=== PATIENT | male | born 1950 | race Caucasian/White ===

== ENCOUNTER 2021-06-25 09:55 | Inpatient (IN) | payer BC, MEDICARE ==
[~2021-06-25] VITALS: Ht 175.3 cm; Wt 70.0 kg
[2021-06-25 11:18] LABS: EOSINOPHILS # (AUTO) 0.3 X10'3 (0-0.9); EOSINOPHILS % (AUTO) 6.7 % (0-6); HEMATOCRIT 44.7 % (42.0-52.0); HEMOGLOBIN 15.7 g/dl (14.0-17.9); LYMPHOCYTES # (AUTO) 1.4 X10'3 (1.1-4.8); LYMPHOCYTES % (AUTO) 30.2 % (21-51); MEAN CORPUSCULAR HEMOGLOBIN 30.4 PG (27.0-31.0); MEAN CORPUSCULAR HGB CONC 35.1 g/dL (33.0-36.5); MEAN CORPUSCULAR VOLUME 86.5 FL (78-98); MONOCYTES # (AUTO) 0.4 X10'3 (0-0.9); MONOCYTES % (AUTO) 8.2 % (2-12); NEUTROPHILS # (AUTO) 2.4 X10'3 (1.8-7.7); NEUTROPHILS % (AUTO) 53.9 % (42-75); PLATELET COUNT 200 X10'3 (140-440); RED BLOOD COUNT 5.16 X10'6 (4.70-6.10); WHITE BLOOD COUNT 4.5 X10'3 (4.5-11.0)
[2021-06-25 11:29] LABS: PARTIAL THROMBOPLASTIN TIME 28 SECONDS (22-32)
[2021-06-25 11:33] LABS: ALANINE AMINOTRANSFERASE 33 U/L (12-78); ALBUMIN 4.1 G/DL (3.4-5.0); ALBUMIN/GLOBULIN RATIO 1.2 (1.1-1.5); ALKALINE PHOSPHATASE 88 IU/L (46-116); ANION GAP 7 (8-16); ASPARTATE AMINO TRANSFERASE 15 U/L (10-37); BILIRUBIN,TOTAL 0.6 MG/DL (0.1-1.0); BLOOD UREA NITROGEN 19 MG/DL (7-18); CALCIUM 9.2 MG/DL (8.5-10.1); CHLORIDE 105 MMOL/L (99-107); CREATININE 1.19 MG/DL (0.60-1.10); GLUCOSE 91 MG/DL (70-104); SODIUM 137 MMOL/L (135-145); TOTAL PROTEIN 7.5 G/DL (6.4-8.2); eGFR 60 ML/MIN
--- NOTE | 2021-06-25 11:51 | NUR ---
NEURO TELE IN PROGRESS
[2021-06-25] MEDS ORDERED: potassium Cl 20 mEq SR tablet PO PRN ×2 (12:50)
[2021-06-25] MEDS ORDERED: potassium CL 10mEq/100ml bag 100 ML IV PRN (12:50)
[2021-06-25] MEDS ORDERED: mag hydrox/Alum hydrox/simeth 30ml oral suspension PO PRN (12:50)
[2021-06-25] MEDS ORDERED: acetaminophen 325mg tablet PO PRN ×2 (12:50)
[2021-06-25] MEDS ORDERED: ondansetron/PF 4mg/2ml inj IV PRN (12:50)
[2021-06-25] MEDS ORDERED: magnesium Cl slow-release 64mg tablet PO PRN (12:50)
[2021-06-25] MEDS ORDERED: magnesium 2GM in 50ml NS 50 ML IV PRN (12:50)
[2021-06-25] MEDS ORDERED: magnesium 4gm in 100ml NS 100 ML IV PRN (12:50)
[2021-06-25] MEDS ORDERED: morphine 2 MG/ML inj. syringe IV PRN (12:50)
[2021-06-25] MEDS: normal saline 1000ml 1,000 ML IV SCH ×2 (12:50→20:24)
[2021-06-25] MEDS ORDERED: HYDROcodone/acetaminophen 5mg/325mg tablet PO PRN (12:50)
[2021-06-25] MEDS ORDERED: magnesium hydroxide 30ml (MOM) UD suspension PO PRN (12:50)
[2021-06-25 13:38] LABS: HEMOGLOBIN A1C 5.1 % (4.5-6.2)
[2021-06-25] MEDS: aspirin 81mg, enteric-coated 1 TAB TABLET.DR PO SCH (13:52)
--- NOTE | 2021-06-25 14:01 | NUR ---
Report given to STEFANO Whitt.
[2021-06-25 15:00] VITALS: BP 125/80
[2021-06-25] MEDS ORDERED: OMEP-50 PO (15:42)
[2021-06-25 18:00] VITALS: BP 124/81
--- NOTE | 2021-06-25 18:47 | NUR ---
Problems reprioritized. Patient report given, questions answered & plan of care reviewed with collins haas.
[2021-06-25] MEDS: K and/or MAG REPLACEMENT MC SCH (20:00)
[2021-06-25] MEDS: heparin, porcine 5000 units/ml vial SQ SCH (20:21)
[2021-06-25] MEDS ORDERED: temazepam 15mg capsule PO PRN (21:00)
[2021-06-25 22:00] VITALS: BP 96/55
[2021-06-26 06:45] LABS: BASOPHILS % (AUTO) 0.8 % (0-1); EOSINOPHILS # (AUTO) 0.3 X10'3 (0-0.9); EOSINOPHILS % (AUTO) 6.8 % (0-6); HEMATOCRIT 44.3 % (42.0-52.0); HEMOGLOBIN 15.7 g/dl (14.0-17.9); LYMPHOCYTES # (AUTO) 1.3 X10'3 (1.1-4.8); LYMPHOCYTES % (AUTO) 31.8 % (21-51); MEAN CORPUSCULAR HEMOGLOBIN 30.6 PG (27.0-31.0); MEAN CORPUSCULAR HGB CONC 35.5 g/dL (33.0-36.5); MEAN CORPUSCULAR VOLUME 86.1 FL (78-98); MEAN PLATELET VOLUME 8.1 FL (7.4-10.4); MONOCYTES # (AUTO) 0.4 X10'3 (0-0.9); MONOCYTES % (AUTO) 9.4 % (2-12); NEUTROPHILS # (AUTO) 2.1 X10'3 (1.8-7.7); NEUTROPHILS % (AUTO) 51.2 % (42-75); PLATELET COUNT 196 X10'3 (140-440); RED BLOOD COUNT 5.14 X10'6 (4.70-6.10); RED CELL DISTRIBUTION WIDTH 13.7 % (11.5-14.5); WHITE BLOOD COUNT 4.1 X10'3 (4.5-11.0)
[2021-06-26 06:52] LABS: ALBUMIN 3.5 G/DL (3.4-5.0); ANION GAP 9 (8-16); BLOOD UREA NITROGEN 21 MG/DL (7-18); BUN/CREATININE RATIO 21.6 (5.4-32.0); CALCIUM 8.6 MG/DL (8.5-10.1); CHLORIDE 109 MMOL/L (99-107); CHOL/HDL RATIO 5.3 (0.00-4.99); CHOLESTEROL 226 MG/DL (0-200); CREATININE 0.97 MG/DL (0.60-1.10); GLUCOSE 98 MG/DL (70-104); HDL CHOLESTEROL 43 MG/DL (35-60); LDL CHOLESTEROL 146 MG/DL (50-100); POTASSIUM 4.2 MMOL/L (3.5-5.1); SODIUM 141 MMOL/L (135-145); TOTAL CARBON DIOXIDE 22.7 MMOL/L (24-32); TRIGLYCERIDES 164 MG/DL (20-135); eGFR 76 ML/MIN
[2021-06-26 07:00] VITALS: BP 103/68
--- NOTE | 2021-06-26 07:00 | NUR ---
Patient in room PCU 3021. I have received report from Cassandra and had the opportunity to ask questions and assume patient care.
[2021-06-26] MEDS ORDERED: pantoprazole 40mg Tablet.DR PO SCH (07:30)
[2021-06-26] MEDS: aspirin 81mg, enteric-coated 1 TAB TABLET.DR PO SCH (07:51)
[2021-06-26] MEDS: heparin, porcine 5000 units/ml vial SQ SCH (07:52)
[2021-06-26] MEDS: K and/or MAG REPLACEMENT MC SCH ×2 (07:57→08:45)
[2021-06-26 08:00] VITALS: BP_SYST 100; BP_SYST 108; BP_SYST 113; BP_DIAS 75; BP_DIAS 76
[2021-06-26] MEDS ORDERED: atorvastatin 20mg tablet PO SCH (08:00)
[2021-06-26] MEDS: normal saline 1000ml 1,000 ML IV SCH (08:02)
[2021-06-26] MEDS ORDERED: ASPI-1071 PO (11:06)
[2021-06-26] MEDS ORDERED: ATOR20TA66 PO (11:06)
--- NOTE | 2021-06-26 15:13 | NUR ---
PAGER ID: [phone] MESSAGE: [email or web address] ON [email or web address], I HAVE MRI FROM [facility] FOR 3021 HERE IF YOU WANT TO VIEW, THANK YOU.
--- NOTE | 2021-06-26 17:30 | NUR ---
Patient d/c to go home with d/c and f/u instructions/directions given to him by resource nurse Erica. IV line and media monitor removed by resource nurse.
== END 2021-06-26 15:25 | disposition home or self-care (01) | DRG 69 ==
LOC: EEVIPCON 09:55 → ER 09:55 → ED HOLD 12:56 → PCU 3S 14:39
PROVIDERS: ADMIT Internal Medicine; ATTEND Internal Medicine
DX: G45.9 Transient cerebral ischemic attack, unspecified (principal); I25.10 Atherosclerotic heart disease of native coronary artery without angina pectoris; G93.0 Cerebral cysts; K21.9 Gastro-esophageal reflux disease without esophagitis; G43.909 Migraine, unspecified, not intractable, without status migrainosus; E86.0 Dehydration; Z95.1 Presence of aortocoronary bypass graft; Z91.041 Radiographic dye allergy status
CPT/HCPCS: 36415; 70450; 70544; 70551; 71045; 80048; 80053; 80061; 82948; 83036; 84484; 85025; 85610; 85730; 93005; 93306; 93880; 99285; G0378; J1644; J7030

== ENCOUNTER 2022-01-05 09:53 | Day surgery (SDC) | payer BC, MEDICARE ==
[2022-01-02 10:10] LABS: BASOPHILS % (AUTO) 0.7 % (0-1); EOSINOPHILS # (AUTO) 0.3 X10'3 (0-0.9); EOSINOPHILS % (AUTO) 5.2 % (0-6); HEMATOCRIT 46.8 % (42.0-52.0); LYMPHOCYTES # (AUTO) 1.6 X10'3 (1.1-4.8); LYMPHOCYTES % (AUTO) 26.7 % (21-51); MEAN CORPUSCULAR HEMOGLOBIN 29.2 PG (27.0-31.0); MEAN CORPUSCULAR HGB CONC 34.3 g/dL (33.0-36.5); MEAN CORPUSCULAR VOLUME 85.4 FL (78-98); MEAN PLATELET VOLUME 8.1 FL (7.4-10.4); MONOCYTES # (AUTO) 0.4 X10'3 (0-0.9); MONOCYTES % (AUTO) 7.5 % (2-12); NEUTROPHILS # (AUTO) 3.5 X10'3 (1.8-7.7); NEUTROPHILS % (AUTO) 59.9 % (42-75); PLATELET COUNT 207 X10'3 (140-440); RED BLOOD COUNT 5.48 X10'6 (4.70-6.10); RED CELL DISTRIBUTION WIDTH 14.2 % (11.5-14.5); WHITE BLOOD COUNT 5.9 X10'3 (4.5-11.0)
[2022-01-02 10:20] LABS: APTT 28 SECONDS (22-32)
[2022-01-02 10:21] LABS: ALBUMIN 4.3 G/DL (3.4-5.0); ANION GAP 6 (8-16); BLOOD UREA NITROGEN 21 MG/DL (7-18); BUN/CREATININE RATIO 21.9 (5.4-32.0); CALCIUM 9.2 MG/DL (8.5-10.1); CHLORIDE 106 MMOL/L (99-107); CHOL/HDL RATIO 3.7 (0.00-4.99); CHOLESTEROL 200 MG/DL (0-200); CREATININE 0.96 MG/DL (0.60-1.10); GLUCOSE 98 MG/DL (70-104); HDL CHOLESTEROL 54 MG/DL (35-60); LDL CHOLESTEROL 126 MG/DL (50-100); POTASSIUM 4.2 MMOL/L (3.5-5.1); SODIUM 139 MMOL/L (135-145); TOTAL CARBON DIOXIDE 27.5 MMOL/L (24-32); TRIGLYCERIDES 140 MG/DL (20-135); eGFR 77 ML/MIN
[~2022-01-05] VITALS: Ht 175.3 cm; Wt 75.9 kg
[2022-01-05] VITALS (9 sets, daily range): BP systolic 108–135; BP diastolic 42–79
[~2022-01-05 09:53] MED LIST: ASPI-1071 PO; ATOR20TA66 PO; LIDOCAINE HCL 10 MG/ML 1% MDV 50ml injection ONE; OMEP20CA16 PO
[2022-01-05] MEDS ORDERED: LORazepam 0.5 MG tablet PO PRN (10:10)
[2022-01-05] MEDS ORDERED: normal saline 1,000 ML IV SCH (10:10)
[2022-01-05] MEDS ORDERED: diphenhydrAMINE 25mg capsule PO PRN (10:10)
[2022-01-05] MEDS ORDERED: PRED10TA23 PO (10:21)
[2022-01-05] MEDS ORDERED: DIPH-423 PO (10:21)
[2022-01-05] MEDS ORDERED: ATOR20TA PO (10:34)
[2022-01-05] MEDS ORDERED: ASPI-1265 PO (10:34)
[2022-01-05] MEDS ORDERED: iohexol 350MG/ML 100ml bottle IV ONE ×2 (12:06→13:56)
[2022-01-05] MEDS ORDERED: fentaNYL/PF 50MCG/1 ML 2ML syringe ONE (13:11)
[2022-01-05] MEDS ORDERED: midazolam 1 mg/ML 2ml injection ONE ×3 (13:11→14:02)
[2022-01-05] MEDS ORDERED: aspirin 325mg tablet ONE (13:48)
[2022-01-05] MEDS ORDERED: clopidogrel 300mg tablet ONE (13:48)
[2022-01-05] MEDS ORDERED: heparin 1,000unit/ml 10ml vial 10 ML ONE (13:48)
[2022-01-05] MEDS ORDERED: HYDROcodone/acetaminophen 10/325mg tab PO PRN (14:50)
[2022-01-05] MEDS ORDERED: HYDROcodone/acetaminophen 5mg/325mg tablet PO PRN (14:50)
== END 2022-01-05 17:45 | disposition home or self-care (01) ==
LOC: SSTAY O 09:53
PROVIDERS: ATTEND Internal Medicine Interventional Cardiology
DX: I25.110 Atherosclerotic heart disease of native coronary artery with unstable angina pectoris (principal); K21.9 Gastro-esophageal reflux disease without esophagitis; E78.5 Hyperlipidemia, unspecified; Z86.73 Personal history of transient ischemic attack (TIA), and cerebral infarction without residual deficits; Z88.8 Allergy status to other drugs, medicaments and biological substances; Z79.82 Long term (current) use of aspirin; Z79.899 Other long term (current) drug therapy; Z90.49 Acquired absence of other specified parts of digestive tract; Z98.890 Other specified postprocedural states; Z87.891 Personal history of nicotine dependence; Z95.1 Presence of aortocoronary bypass graft; Z79.01 Long term (current) use of anticoagulants
CPT/HCPCS: 36415; 80048; 80061; 85025; 85610; 85730; 93005; 93459; 99152; 99153; C1725; C1751; C1760; C1769; C1874; C1894; C9600; J1644; J2250; J3010; J7030; Q9967; 93458; A4620; A6258

== ENCOUNTER 2022-02-16 07:55 | Outpatient (CLI) | payer BC, MEDICARE ==
[~2022-02-16 07:55] MED LIST changes: -ASPI-1071 PO; +ASPI-1265 PO; +ATOR20TA PO; -ATOR20TA66 PO; +DIPH-423 PO; -LIDOCAINE HCL 10 MG/ML 1% MDV 50ml injection ONE; +PRED10TA23 PO
[2022-02-16 08:32] LABS: ALBUMIN 3.7 G/DL (3.4-5.0); ALBUMIN/GLOBULIN RATIO 1.2 (1.1-1.5); ALKALINE PHOSPHATASE 66 IU/L (46-116); ANION GAP 5 (8-16); ASPARTATE AMINO TRANSFERASE 15 U/L (10-37); BILIRUBIN,TOTAL 0.4 MG/DL (0.1-1.0); BLOOD UREA NITROGEN 16 MG/DL (7-18); BUN/CREATININE RATIO 15.8 (5.4-32.0); CALCIUM 8.8 MG/DL (8.5-10.1); CHLORIDE 108 MMOL/L (99-107); CHOL/HDL RATIO 2.7 (0.00-4.99); CHOLESTEROL 137 MG/DL (0-200); CREATININE 1.01 MG/DL (0.60-1.10); GLUCOSE 92 MG/DL (70-104); HDL CHOLESTEROL 50 MG/DL (35-60); LDL CHOLESTEROL 68 MG/DL (50-100); POTASSIUM 4.1 MMOL/L (3.5-5.1); SODIUM 141 MMOL/L (135-145); TOTAL CARBON DIOXIDE 28.4 MMOL/L (24-32); TOTAL PROTEIN 6.8 G/DL (6.4-8.2); TRIGLYCERIDES 82 MG/DL (20-135); eGFR 73 ML/MIN
[2022-02-16 08:55] LABS: ALANINE AMINOTRANSFERASE 33 U/L (12-78)
== END 2022-02-16 23:59 | disposition home or self-care (01) ==
LOC: VAS 07:55
PROVIDERS: ATTEND Internal Medicine Interventional Cardiology
DX: I65.23 Occlusion and stenosis of bilateral carotid arteries (principal); I25.810 Atherosclerosis of coronary artery bypass graft(s) without angina pectoris; E78.5 Hyperlipidemia, unspecified; R53.83 Other fatigue
CPT/HCPCS: 36415; 80053; 80061; 93880

== ENCOUNTER 2022-03-16 06:14 | Inpatient (IN) | payer BC, MEDICARE ==
[~2022-03-16] VITALS: Ht 175.3 cm; Wt 72.7 kg
[2022-03-16] VITALS (14 sets, daily range): BP systolic 94–123; BP diastolic 60–76
[2022-03-16] MEDS ORDERED: ondansetron/PF 4mg/2ml inj IV ONE ×2 (07:30→10:05)
[2022-03-16] MEDS ORDERED: CefTRIAXone 2gm/D5W 50ml BAG 50 ML IV ONE (07:30)
[2022-03-16] MEDS ORDERED: normal saline 1000ML IV soln IVB ONE (07:30)
[2022-03-16] MEDS: morphine 4 MG/ML inj SYRINge IV PRN ×2 (07:32→08:18)
[2022-03-16 07:45] LABS: BASOPHILS % (AUTO) 0.2 % (0-1); EOSINOPHILS % (AUTO) 0.1 % (0-6); HEMOGLOBIN 15.2 g/dl (14.0-17.9); LYMPHOCYTES # (AUTO) 0.6 X10'3 (1.1-4.8); LYMPHOCYTES % (AUTO) 4.1 % (21-51); MEAN CORPUSCULAR HEMOGLOBIN 29.8 PG (27.0-31.0); MEAN CORPUSCULAR HGB CONC 35.2 g/dL (33.0-36.5); MEAN CORPUSCULAR VOLUME 84.6 FL (78-98); MEAN PLATELET VOLUME 7.9 FL (7.4-10.4); MONOCYTES # (AUTO) 0.8 X10'3 (0-0.9); MONOCYTES % (AUTO) 5.8 % (2-12); NEUTROPHILS # (AUTO) 12.9 X10'3 (1.8-7.7); NEUTROPHILS % (AUTO) 89.8 % (42-75); PLATELET COUNT 233 X10'3 (140-440); RED BLOOD COUNT 5.08 X10'6 (4.70-6.10); RED CELL DISTRIBUTION WIDTH 13.6 % (11.5-14.5); WHITE BLOOD COUNT 14.3 X10'3 (4.5-11.0)
[2022-03-16 08:00] LABS: ALANINE AMINOTRANSFERASE 28 U/L (12-78); ALBUMIN 4.4 G/DL (3.4-5.0); ALBUMIN/GLOBULIN RATIO 1.3 (1.1-1.5); ALKALINE PHOSPHATASE 84 IU/L (46-116); ANION GAP 11 (8-16); ASPARTATE AMINO TRANSFERASE 17 U/L (10-37); BILIRUBIN,TOTAL 0.8 MG/DL (0.1-1.0); BLOOD UREA NITROGEN 19 MG/DL (7-18); BUN/CREATININE RATIO 21.6 (5.4-32.0); CALCIUM 9.3 MG/DL (8.5-10.1); CHLORIDE 104 MMOL/L (99-107); CREATININE 0.88 MG/DL (0.60-1.10); GLUCOSE 145 MG/DL (70-104); POTASSIUM 3.4 MMOL/L (3.5-5.1); SODIUM 140 MMOL/L (135-145); TOTAL CARBON DIOXIDE 25.1 MMOL/L (24-32); TOTAL PROTEIN 7.7 G/DL (6.4-8.2); eGFR 85 ML/MIN
[2022-03-16 08:09] LABS: LIPASE 79 U/L (73-393)
[2022-03-16 09:35] LABS: CLARITY,URINE SLIGHTLY CLOUDY (Clear); COLOR,URINE YELLOW (Yellow); GLUCOSE, URINE NEGATIVE (Neg); KETONES,URINE 15 mg/dl (Neg); LEUKOCYTE ESTERASE ,URINE NEGATIVE (Neg); NITRITES, URINE NEGATIVE (Neg); OCCULT BLOOD,URINE SMALL (Neg); PROTEIN,URINE NEGATIVE (Neg); UROBILINOGEN,URINE 0.2 E.U/dL (0.2-1.0)
[2022-03-16] MEDS ORDERED: bisacodyl 10mg suppository rectal RC PRN (09:40)
[2022-03-16] MEDS ORDERED: potassium CL 10mEq/100ml bag 100 ML IV PRN (09:40)
[2022-03-16] MEDS ORDERED: ondansetron/PF 4mg/2ml inj IV PRN ×2 (09:40→11:20)
[2022-03-16] MEDS ORDERED: metoclopramide 5 mg/ml inj IV PRN (09:40)
[2022-03-16] MEDS ORDERED: PERFLUTREN PROTEIN-A MICROSPHR (Optison) 0.22 MG/ML 3ML VIAL IV ONE (09:40)
[2022-03-16] MEDS ORDERED: magnesium 2GM in 50ml NS 50 ML IV PRN (09:40)
[2022-03-16] MEDS ORDERED: acetaminophen 325mg tablet PO PRN ×2 (09:40)
[2022-03-16] MEDS ORDERED: ondansetron 4mg rapidly disintigrating tab PO PRN (09:40)
[2022-03-16] MEDS ORDERED: POTASSIUM BICARB 20meq eff tab 20 MEQ TABLET.EFF PO PRN ×2 (09:40)
[2022-03-16] MEDS ORDERED: magnesium Cl slow-release 64mg tablet PO PRN (09:40)
[2022-03-16] MEDS ORDERED: HYDROcodone/acetaminophen 10/325mg tab PO PRN (09:40)
[2022-03-16] MEDS ORDERED: morphine 4 MG/ML inj SYRINge IV PRN ×2 (09:40→11:20)
[2022-03-16] MEDS ORDERED: magnesium 4gm in 100ml NS 100 ML IV PRN (09:40)
[2022-03-16] MEDS ORDERED: HYDROmorphone/PF 0.2 MG/ML SYRINGE IV PRN (09:40)
[2022-03-16] MEDS ORDERED: acetaminophen 650mg rectal suppository RC PRN (09:40)
[2022-03-16] MEDS ORDERED: HYDROcodone/acetaminophen 5mg/325mg tablet PO PRN (09:40)
[2022-03-16] MEDS ORDERED: magnesium hydroxide 30ml (MOM) UD suspension PO PRN (09:40)
[2022-03-16] MEDS ORDERED: mag hydrox/Alum hydrox/simeth 30ml oral suspension PO PRN (09:40)
[2022-03-16 09:47] LABS: UA COLLECTION TYPE OTHER
[2022-03-16 09:48] LABS: MUCUS STRANDS MANY /LPF (Neg); SQUAMOUS EPITHELIAL CELL,UR FEW /LPF (FEW)
[2022-03-16 09:49] LABS: HYALINE CASTS 0-3 /LPF (NEGATIVE)
[2022-03-16 09:50] LABS: WBC,URINE 0-4 /HPF (0-4)
[2022-03-16 09:51] LABS: BACTERIA,URINE FEW /HPF (Neg)
[2022-03-16] MEDS: normal saline 1000ml 1,000 ML IV SCH ×2 (10:08→19:40)
[2022-03-16 10:23] LABS: MAGNESIUM 1.9 MG/DL (1.5-2.4); POTASSIUM 3.4 MMOL/L (3.5-5.1)
[2022-03-16 10:35] LABS: APTT 27 SECONDS (22-32)
[2022-03-16] MEDS ORDERED: morphine 2 MG/ML inj. syringe IV PRN (11:20)
[2022-03-16] MEDS ORDERED: labetalol 20mg/4ml (5mg/ml) syringe IV PRN (11:20)
[2022-03-16] MEDS ORDERED: fentaNYL/PF 50MCG/1 ML 2ML syringe IV PRN ×2 (11:20)
[2022-03-16] MEDS ORDERED: ringers solution, lacted 1,000 ML IV SCH (11:20)
[2022-03-16] MEDS ORDERED: hydrALAZINE 20mg/ml inj. IV PRN (11:20)
[2022-03-16 11:23] LABS: POTASSIUM 3.5 MMOL/L (3.5-5.1)
--- NOTE | 2022-03-16 12:07 | NUR ---
Received pt from ED via [facility], at bedside. Spoke with OR who will pick Pt up within the hour. Dr Gamble at bedside for admit. Bed low call light in reach. Discussed poc pt pt verbalizes understanding.
[2022-03-16] MEDS ORDERED: CLOP75TA34 PO (12:25)
[2022-03-16] MEDS ORDERED: ROSU10TA28 PO (13:00)
[2022-03-16] MEDS: HYDROmorphone inj. 0.5 MG/0.5 ML DISP.SYRIN IV PRN ×2 (13:01→18:02)
--- NOTE | 2022-03-16 13:05 | NUR ---
Pt to recovery for pre-op Report called to STEFANO Solis
[2022-03-16] MEDS ORDERED: BUPIVAcaine/PF 2.5 mg/ml (0.25%) 30ml vial ONE (13:07)
[2022-03-16] MEDS ORDERED: midazolam 1 mg/ML 2ml injection ONE (13:39)
[2022-03-16] MEDS ORDERED: fentaNYL/PF 50MCG/1 ML 2ML syringe ONE (13:39)
[2022-03-16] MEDS ORDERED: rocuronium 10mg/ml inj IV ONE (13:44)
[2022-03-16] MEDS ORDERED: propofol inj 20 ML IV ONE (13:45)
[2022-03-16] MEDS ORDERED: LIDOcaine 2% (20mg/ml) 5ml vial ONE (13:45)
[2022-03-16] MEDS ORDERED: ondansetron/PF 4mg/2ml inj ONE (13:57)
--- NOTE | 2022-03-16 14:36 | NUR ---
Received from OR via HOSPITAL BED, accompanied by Anesthesiologist and report given by DILCIA Anesthesiologist. PATIENT WAKING UP, NO S/S OF PAIN, V/S WNL, SCD ON , PIV 20G LAC, STERI-STRIPS LAPS SITES X3 CLOSED C/D/I TO ABDOMEN. Addendum: 03/16/22 at 1445 by Andres Pathak RN Amended: Links added.
--- NOTE | 2022-03-16 15:18 | NUR ---
Received report from Will in recovery, pt stable to tx back to floor.
--- NOTE | 2022-03-16 15:26 | NUR ---
PATIENT HAS MET ALL CRITERIA FOR TRANSFER TO PCU FLOOR. VSS. DRESSINGS INTACT. BED LOW, CALL LIGHT PRESENT AND 2 RAILS UP. RN PRESENT TO ACCEPT CARE OF PATIENT AND REPORT HAS BEEN CALLED. ALL QUESTIONS ANSWERED TO ACCEPTING RN. Addendum: 03/16/22 at 1533 by Andres Pathak RN Amended: Links added.
--- NOTE | 2022-03-16 18:30 | NUR ---
Problems reprioritized. Patient report given, questions answered & plan of care reviewed with Marika and STEFANO Nelson.
[2022-03-16] MEDS ORDERED: FAMO20TA8 PO (19:01)
--- NOTE | 2022-03-16 19:12 | NUR ---
Patient in room PCU 3014. I have received report from CHUCKIE AGARWAL and had the opportunity to ask questions and assume patient care.
[2022-03-16] MEDS: K and/or MAG REPLACEMENT MC SCH (20:00)
[2022-03-16] MEDS ORDERED: LIDOcaine 2% 10ml TOPICAL JELLY (Urojet) TP ONE (20:35)
[2022-03-16] MEDS: docusate sod 100mg capsule PO SCH (20:46)
[2022-03-16] MEDS ORDERED: temazepam 15mg capsule PO PRN (21:00)
[2022-03-17 02:00] VITALS: BP 96/61
[2022-03-17] MEDS: normal saline 1000ml 1,000 ML IV SCH (05:42)
[2022-03-17 06:00] VITALS: BP 105/67
--- NOTE | 2022-03-17 06:31 | NUR ---
Problems reprioritized. Patient report given, questions answered & plan of care reviewed with Wilfred RN's.
[2022-03-17 06:59] LABS: BASOPHILS % (AUTO) 0.1 % (0-1); EOSINOPHILS % (AUTO) 0 % (0-6); HEMATOCRIT 39.9 % (42.0-52.0); HEMOGLOBIN 13.9 g/dl (14.0-17.9); LYMPHOCYTES % (AUTO) 6.8 % (21-51); MEAN CORPUSCULAR HEMOGLOBIN 29.7 PG (27.0-31.0); MEAN CORPUSCULAR HGB CONC 34.7 g/dL (33.0-36.5); MEAN CORPUSCULAR VOLUME 85.6 FL (78-98); MEAN PLATELET VOLUME 7.7 FL (7.4-10.4); MONOCYTES # (AUTO) 0.9 X10'3 (0-0.9); MONOCYTES % (AUTO) 5.9 % (2-12); NEUTROPHILS # (AUTO) 12.8 X10'3 (1.8-7.7); NEUTROPHILS % (AUTO) 87.2 % (42-75); PLATELET COUNT 231 X10'3 (140-440); RED BLOOD COUNT 4.66 X10'6 (4.70-6.10); RED CELL DISTRIBUTION WIDTH 14.1 % (11.5-14.5); WHITE BLOOD COUNT 14.7 X10'3 (4.5-11.0)
[2022-03-17 07:13] LABS: ALANINE AMINOTRANSFERASE 18 U/L (12-78); ALBUMIN 3.3 G/DL (3.4-5.0); ALKALINE PHOSPHATASE 67 IU/L (46-116); ANION GAP 10 (8-16); ASPARTATE AMINO TRANSFERASE 11 U/L (10-37); BILIRUBIN,TOTAL 0.7 MG/DL (0.1-1.0); BLOOD UREA NITROGEN 16 MG/DL (7-18); BUN/CREATININE RATIO 17.6 (5.4-32.0); CALCIUM 8.8 MG/DL (8.5-10.1); CHLORIDE 109 MMOL/L (99-107); CREATININE 0.91 MG/DL (0.60-1.10); GLUCOSE 119 MG/DL (70-104); MAGNESIUM 2.3 MG/DL (1.5-2.4); SODIUM 140 MMOL/L (135-145); TOTAL CARBON DIOXIDE 20.9 MMOL/L (24-32); TOTAL PROTEIN 6.6 G/DL (6.4-8.2); eGFR 82 ML/MIN
[2022-03-17] MEDS ORDERED: CefTRIAXone/D5W-Rocephin 1gm 50 ML IV SCH (08:00)
[2022-03-17] MEDS: K and/or MAG REPLACEMENT MC SCH (08:00)
[2022-03-17] MEDS: docusate sod 100mg capsule PO SCH (08:24)
--- NOTE | 2022-03-17 09:30 | NUR ---
d/c'd f/c per protocol. Pt tolerated well.
[2022-03-17] MEDS ORDERED: HYDR-3972 PO (10:42)
[2022-03-17] MEDS ORDERED: AMOX-117 PO (10:42)
[2022-03-17 11:00] VITALS: BP 114/72
--- NOTE | 2022-03-17 12:50 | NUR ---
Pt stable for d/c. All d/c ppwk was reviewed with patient. All questions, comments, concerns were answered at this time. New rx sent to [facility] in [place]. Pt was picked up by brother who brought his clothes. Pt was walked down to lobby by nursing staff with his personal belongings. Tele and PIV was removed.
[2022-03-18] MEDS ORDERED: aspirin 81mg tab.chew PO SCH (08:00)
[2022-03-18] MEDS ORDERED: clopidogrel 75mg tablet PO SCH (08:00)
== END 2022-03-17 12:51 | disposition home or self-care (01) | DRG 343 ==
LOC: ER 06:15 → ED HOLD 09:40 → PCU 3S 11:47
PROVIDERS: ADMIT Family Medicine; ATTEND Family Medicine
PROC: 0DTJ4ZZ Resection of Appendix, Percutaneous Endoscopic Approach (ICD-10-PCS; principal; 2022-03-16 13:36)
DX: K35.80 Unspecified acute appendicitis (principal); E78.00 Pure hypercholesterolemia, unspecified; E87.6 Hypokalemia; I10 Essential (primary) hypertension; Z20.822 Contact with and (suspected) exposure to COVID-19; I25.10 Atherosclerotic heart disease of native coronary artery without angina pectoris; K21.9 Gastro-esophageal reflux disease without esophagitis; K38.1 Appendicular concretions; Z79.02 Long term (current) use of antithrombotics/antiplatelets; Z86.16 Personal history of COVID-19; Z95.1 Presence of aortocoronary bypass graft; Z95.5 Presence of coronary angioplasty implant and graft; Z91.041 Radiographic dye allergy status; Z79.899 Other long term (current) drug therapy; Z79.82 Long term (current) use of aspirin; Z90.49 Acquired absence of other specified parts of digestive tract
CPT/HCPCS: 93306; 96365; 96375; 99285; Z7506; 36415; 71045; 74176; 80053; 81001; 82948; 83690; 83735; 83880; 84132; 84484; 85025; 85610; 85730; 87081; 87635; A4215; A4314; A4618; A7000; G0378; J0696; J1170; J2250; J2270; J2405; J2704; J3010; J3490; J7030; J7120

== ENCOUNTER 2024-06-09 07:28 | Emergency (ER) | payer BC, MEDICARE, OTHER ==
[~2024-06-09] VITALS: Ht 175.3 cm; Wt 80.2 kg
[~2024-06-09 07:28] MED LIST changes: -ATOR20TA PO; +CLOP75TA34 PO; -DIPH-423 PO; +FAMO20TA8 PO; +HYDR-3972 PO; -OMEP20CA16 PO; -PRED10TA23 PO; +ROSU10TA72 PO
[2024-06-09] MEDS: ondansetron 4mg rapidly disintigrating tab PO ONE (08:19)
[2024-06-09] MEDS: ketorolac trometh 15mg/ml vial 15 MG/ML ML IM ONE (08:19)
[2024-06-09] MEDS ORDERED: METH-797 PO (09:16)
[2024-06-09 09:26] VITALS: BP 126/87; PULSE 93; RESP 16; TEMP 97; O2SAT 98
== END 2024-06-09 09:29 | disposition home or self-care (01) ==
LOC: ER 07:28
DX: S16.1XXA Strain of muscle, fascia and tendon at neck level, initial encounter (principal); I25.10 Atherosclerotic heart disease of native coronary artery without angina pectoris; K21.9 Gastro-esophageal reflux disease without esophagitis; G89.29 Other chronic pain; M48.02 Spinal stenosis, cervical region; M47.812 Spondylosis without myelopathy or radiculopathy, cervical region; R42 Dizziness and giddiness; Z91.041 Radiographic dye allergy status; Z79.1 Long term (current) use of non-steroidal anti-inflammatories (NSAID); Z79.899 Other long term (current) drug therapy; W07.XXXA Fall from chair, initial encounter; Y93.89 Activity, other specified; Y92.89 Other specified places as the place of occurrence of the external cause; Y99.8 Other external cause status
CPT/HCPCS: 70450; 72125; 96372; 99285; J1885

== ENCOUNTER 2024-08-02 05:47 | Emergency (ER) | payer BC, OTHER ==
[~2024-08-02] VITALS: Ht 175.3 cm; Wt 79.5 kg
[~2024-08-02 05:47] MED LIST changes: +METH-797 PO
[2024-08-02 08:09] VITALS: BP 132/104; PULSE 99; RESP 16; TEMP 98.4; O2SAT 97
== END 2024-08-02 08:10 | disposition home or self-care (01) ==
LOC: ER 05:47
DX: S63.502A Unspecified sprain of left wrist, initial encounter (principal); I25.10 Atherosclerotic heart disease of native coronary artery without angina pectoris; K21.9 Gastro-esophageal reflux disease without esophagitis; M19.90 Unspecified osteoarthritis, unspecified site; Z95.1 Presence of aortocoronary bypass graft; Z91.041 Radiographic dye allergy status; Z98.890 Other specified postprocedural states; Z79.82 Long term (current) use of aspirin; W19.XXXA Unspecified fall, initial encounter; Y93.89 Activity, other specified; Y92.89 Other specified places as the place of occurrence of the external cause; Y99.8 Other external cause status
CPT/HCPCS: 29125; 73110; 99284; A6449

== ENCOUNTER 2024-10-16 05:44 | Inpatient (IN) | payer BC, MEDICARE ==
[~2024-10-16] VITALS: Ht 175.3 cm; Wt 77.6 kg
[2024-10-16 06:08] LABS: BASOPHILS # (AUTO) 0.1 X10'3 (0-0.2); BASOPHILS % (AUTO) 0.9 % (0-1); EOSINOPHILS # (AUTO) 0.5 X10'3 (0-0.9); EOSINOPHILS % (AUTO) 8.7 % (0-6); HEMATOCRIT 45.4 % (42.0-52.0); HEMOGLOBIN 15.9 g/dl (14.0-17.9); LYMPHOCYTES % (AUTO) 33.5 % (21-51); MEAN CORPUSCULAR HEMOGLOBIN 29.7 PG (27.0-31.0); MEAN CORPUSCULAR VOLUME 84.9 FL (78-98); MEAN PLATELET VOLUME 7.6 FL (7.4-10.4); MONOCYTES # (AUTO) 0.6 X10'3 (0-0.9); MONOCYTES % (AUTO) 10.5 % (2-12); NEUTROPHILS # (AUTO) 2.8 X10'3 (1.8-7.7); NEUTROPHILS % (AUTO) 46.4 % (42-75); PLATELET COUNT 217 X10'3 (140-440); RED BLOOD COUNT 5.35 X10'6 (4.70-6.10)
[2024-10-16 06:20] LABS: ALANINE AMINOTRANSFERASE 40 U/L (12-78); ALBUMIN 4.1 G/DL (3.4-5.0); ALBUMIN/GLOBULIN RATIO 1.2 (1.1-1.5); ALKALINE PHOSPHATASE 98 IU/L (46-116); ANION GAP 10 (8-16); ASPARTATE AMINO TRANSFERASE 21 U/L (10-37); BILIRUBIN,TOTAL 0.9 MG/DL (0.1-1.0); BLOOD UREA NITROGEN 25 MG/DL (7-18); BUN/CREATININE RATIO 28.4 (10.0-20.0); CALCIUM 9.2 MG/DL (8.5-10.1); CHLORIDE 107 MMOL/L (99-107); CREATININE 0.88 MG/DL (0.60-1.10); GLUCOSE 101 MG/DL (70-104); POTASSIUM 3.8 MMOL/L (3.5-5.1); SODIUM 141 MMOL/L (135-145); TOTAL CARBON DIOXIDE 24.3 MMOL/L (24-32); TOTAL PROTEIN 7.6 G/DL (6.4-8.2); eCRCL 74 ML/MIN; eGFR 85 ML/MIN
[2024-10-16 06:27] LABS: PRO BRAIN NATRIURETIC PEPTIDE 146 PG/ML (0-125)
[2024-10-16] MEDS ORDERED: magnesium sulf-water 4G/100mL 100 ML IV PRN (08:15)
[2024-10-16] MEDS ORDERED: ondansetron/PF 4mg/2ml inj IV PRN (08:15)
[2024-10-16] MEDS ORDERED: potassium Cl 40MEQ/1/2NS 520ml 520 ML IV PRN (08:15)
[2024-10-16] MEDS ORDERED: magnesium hydroxide 30ml (MOM) UD suspension PO PRN (08:15)
[2024-10-16] MEDS ORDERED: potassium Cl 20 mEq SR tablet PO PRN ×2 (08:15)
[2024-10-16] MEDS ORDERED: mag hydrox/Alum hydrox/simeth 30ml oral suspension PO PRN (08:15)
[2024-10-16] MEDS ORDERED: magnesium sulf-water 2g/50mL 50 ML IV PRN (08:15)
[2024-10-16] MEDS ORDERED: acetaminophen 325mg tablet PO PRN (08:15)
[2024-10-16] MEDS ORDERED: magnesium Cl slow-release 64mg tablet PO PRN (08:15)
[2024-10-16] MEDS: aspirin 325mg tablet PO ONE (08:38)
[2024-10-16] MEDS: atorvastatin 20mg tablet PO ONE (08:38)
[2024-10-16 08:50] LABS: HEMOGLOBIN A1C 5.1 % (4.5-6.2)
[2024-10-16] MEDS ORDERED: nitroGLYCERIN 0.4mg SUBLingual tab SL PRN (08:55)
[2024-10-16] MEDS ORDERED: aminophylline 500mg/20ml vial IV PRN (08:55)
[2024-10-16] MEDS ORDERED: metoprolol tartrate 1mg/ml inj IV PRN (08:55)
[2024-10-16 10:05] LABS: BILIRUBIN,URINE NEGATIVE (Neg); CLARITY,URINE CLEAR (Clear); COLOR,URINE YELLOW (Yellow); GLUCOSE, URINE NEGATIVE (Neg); KETONES,URINE NEGATIVE (Neg); LEUKOCYTE ESTERASE ,URINE NEGATIVE (Neg); NITRITES, URINE NEGATIVE (Neg); OCCULT BLOOD,URINE TRACE-INTACT (Neg); PROTEIN,URINE NEGATIVE (Neg); UROBILINOGEN,URINE 0.2 E.U/dL (0.2-1.0)
[2024-10-16 10:08] LABS: UA COLLECTION TYPE URINAL
[2024-10-16 10:10] LABS: BACTERIA,URINE NONE SEEN /HPF (Neg); RBC,URINE 0-2 /HPF (0-2); SQUAMOUS EPITHELIAL CELL,UR NONE SEEN /LPF (FEW); WBC,URINE NONE SEEN /HPF (0-4)
[2024-10-16 10:59] VITALS: BP 131/78; PULSE 80; RESP 14; O2SAT 98
[2024-10-16] MEDS ORDERED: Methocarbamol 500 MG TABLET PO PRN (12:35)
[2024-10-16 15:00] VITALS: BP 126/73; PULSE 80; RESP 17; TEMP 97.6; O2SAT 97
[2024-10-16 18:00] VITALS: BP 109/77; PULSE 65; RESP 18; TEMP 96.9; O2SAT 98
[2024-10-16] MEDS: K and/or MAG REPLACEMENT MC SCH (20:00)
[2024-10-16] MEDS: docusate sod 100mg capsule PO SCH (20:00)
[2024-10-16] MEDS: heparin, porcine 5000 units/ml vial SQ SCH (20:12)
[2024-10-17] VITALS (15 sets, daily range): BP systolic 95–123; BP diastolic 56–81; PULSE 63–91; RESP 12–19; TEMP 97.1–98; O2SAT 94–98
[2024-10-17] MEDS: famotidine 20mg tablet PO SCH (07:04)
[2024-10-17] MEDS: atorvastatin 20mg tablet PO SCH (07:04)
[2024-10-17] MEDS: aspirin 81mg tab.chew PO SCH (07:04)
[2024-10-17 07:34] LABS: BASOPHILS % (AUTO) 0.7 % (0-1); EOSINOPHILS # (AUTO) 0.5 X10'3 (0-0.9); EOSINOPHILS % (AUTO) 9.4 % (0-6); HEMATOCRIT 44.9 % (42.0-52.0); HEMOGLOBIN 15.6 g/dl (14.0-17.9); LYMPHOCYTES # (AUTO) 1.6 X10'3 (1.1-4.8); LYMPHOCYTES % (AUTO) 31.8 % (21-51); MEAN CORPUSCULAR HEMOGLOBIN 29.8 PG (27.0-31.0); MEAN CORPUSCULAR HGB CONC 34.8 g/dL (33.0-36.5); MEAN CORPUSCULAR VOLUME 85.8 FL (78-98); MONOCYTES # (AUTO) 0.5 X10'3 (0-0.9); MONOCYTES % (AUTO) 9.6 % (2-12); NEUTROPHILS # (AUTO) 2.5 X10'3 (1.8-7.7); NEUTROPHILS % (AUTO) 48.5 % (42-75); PLATELET COUNT 207 X10'3 (140-440); RED BLOOD COUNT 5.24 X10'6 (4.70-6.10); RED CELL DISTRIBUTION WIDTH 14.8 % (11.5-14.5); WHITE BLOOD COUNT 5.1 X10'3 (4.5-11.0)
[2024-10-17 08:05] LABS: ALBUMIN 3.6 G/DL (3.4-5.0); ANION GAP 10 (8-16); BLOOD UREA NITROGEN 23 MG/DL (7-18); BUN/CREATININE RATIO 30.7 (10.0-20.0); CALCIUM 8.7 MG/DL (8.5-10.1); CHLORIDE 108 MMOL/L (99-107); CHOL/HDL RATIO 3.1 (0.00-4.99); CHOLESTEROL 151 MG/DL (0-200); CREATININE 0.75 MG/DL (0.60-1.10); GLUCOSE 100 MG/DL (70-104); HDL CHOLESTEROL 49 MG/DL (35-60); LDL CHOLESTEROL 84 MG/DL (50-100); MAGNESIUM 2.4 MG/DL (1.5-2.4); POTASSIUM 4.1 MMOL/L (3.5-5.1); SODIUM 141 MMOL/L (135-145); TOTAL CARBON DIOXIDE 23.4 MMOL/L (24-32); TRIGLYCERIDES 149 MG/DL (20-135); eCRCL 86 ML/MIN; eGFR > 90 ML/MIN
[2024-10-17] MEDS: regadenoson 0.4mg/5ml syringe IV PRN (08:30)
[2024-10-17 12:54] LABS: THYROID STIMULATING HORMONE 2.17 ulU/ml (0.34-4.50)
[2024-10-18 02:00] VITALS: BP 105/72; PULSE 75; RESP 17; TEMP 97.3; O2SAT 96
[2024-10-18 06:00] VITALS: BP 120/69; PULSE 74; RESP 15; TEMP 97.3; O2SAT 98
[2024-10-18 06:08] LABS: BASOPHILS # (AUTO) 0.1 X10'3 (0-0.2); BASOPHILS % (AUTO) 1.1 % (0-1); EOSINOPHILS # (AUTO) 0.5 X10'3 (0-0.9); HEMOGLOBIN 16.2 g/dl (14.0-17.9); LYMPHOCYTES # (AUTO) 1.8 X10'3 (1.1-4.8); LYMPHOCYTES % (AUTO) 31.4 % (21-51); MEAN CORPUSCULAR HEMOGLOBIN 29.9 PG (27.0-31.0); MEAN CORPUSCULAR HGB CONC 34.5 g/dL (33.0-36.5); MEAN CORPUSCULAR VOLUME 86.7 FL (78-98); MEAN PLATELET VOLUME 7.7 FL (7.4-10.4); MONOCYTES # (AUTO) 0.6 X10'3 (0-0.9); MONOCYTES % (AUTO) 10.2 % (2-12); NEUTROPHILS # (AUTO) 2.7 X10'3 (1.8-7.7); NEUTROPHILS % (AUTO) 48.3 % (42-75); PLATELET COUNT 204 X10'3 (140-440); RED BLOOD COUNT 5.43 X10'6 (4.70-6.10); RED CELL DISTRIBUTION WIDTH 15.2 % (11.5-14.5); WHITE BLOOD COUNT 5.6 X10'3 (4.5-11.0)
[2024-10-18 06:12] LABS: ALBUMIN 3.6 G/DL (3.4-5.0); ANION GAP 8 (8-16); BLOOD UREA NITROGEN 20 MG/DL (7-18); BUN/CREATININE RATIO 25.3 (10.0-20.0); CALCIUM 8.8 MG/DL (8.5-10.1); CHLORIDE 107 MMOL/L (99-107); CREATININE 0.79 MG/DL (0.60-1.10); GLUCOSE 103 MG/DL (70-104); MAGNESIUM 2.3 MG/DL (1.5-2.4); POTASSIUM 4.4 MMOL/L (3.5-5.1); SODIUM 139 MMOL/L (135-145); TOTAL CARBON DIOXIDE 23.7 MMOL/L (24-32); eCRCL 82 ML/MIN; eGFR > 90 ML/MIN
[2024-10-18 07:21] VITALS: RESP 15; O2SAT 98
[2024-10-18] MEDS: metoprolol succinate 25mg (24-HOUR) SR. Tablet PO SCH (07:55)
[2024-10-18] MEDS ORDERED: ROSU10TA72 PO (09:32)
[2024-10-18] MEDS ORDERED: METO-395 PO (09:32)
[2024-10-18 11:06] VITALS: BP 100/72; PULSE 74; RESP 13; TEMP 98; O2SAT 98
== END 2024-10-18 10:25 | disposition home or self-care (01) | DRG 303 ==
LOC: ER 05:44 → ED HOLD 08:14 → PCU 3S 11:05
PROVIDERS: ADMIT Family Medicine; ATTEND Family Medicine
PROC: 4A02XM4 Measurement of Cardiac Total Activity, External Approach (ICD-10-PCS; principal; 2024-10-17)
PROC: 3E033HZ Introduction of Radioactive Substance into Peripheral Vein, Percutaneous Approach (ICD-10-PCS; 2024-10-17)
DX: I25.110 Atherosclerotic heart disease of native coronary artery with unstable angina pectoris (principal); E78.5 Hyperlipidemia, unspecified; K21.9 Gastro-esophageal reflux disease without esophagitis; Z79.899 Other long term (current) drug therapy; Z91.041 Radiographic dye allergy status; Z81.8 Family history of other mental and behavioral disorders; Z95.1 Presence of aortocoronary bypass graft; Z90.49 Acquired absence of other specified parts of digestive tract
CPT/HCPCS: 36415; 71045; 78452; 80048; 80053; 80061; 81001; 83036; 83735; 83880; 84443; 84484; 85025; 87081; 93005; 93017; 93306; 97116; 97161; 97530; 99285; A9500; G0378; J1644; J2785

== ENCOUNTER 2025-01-29 14:00 | Day surgery (SDC) | payer MEDICARE ==
[2025-01-28 13:16] LABS: MEAN PLATELET VOLUME 8.1 FL (7.4-10.4); RED CELL DISTRIBUTION WIDTH 14.1 % (11.5-14.5)
[2025-01-28 13:30] LABS: INR 1.0 INR
[2025-01-28 13:35] LABS: CHOL/HDL RATIO 2.8 (0.00-4.99); CREATININE 0.84 MG/DL (0.60-1.10); LDL CHOLESTEROL 76 MG/DL (50-100); TOTAL CARBON DIOXIDE 20.9 MMOL/L (24-32); eGFR 89 ML/MIN
[2025-01-28 14:12] LABS: APTT 28 SECONDS (22-32)
[~2025-01-29] VITALS: Ht 175.3 cm; Wt 73.0 kg
[2025-01-29] VITALS (8 sets, daily range): BP systolic 104–116; BP diastolic 68–78; PULSE 100–107; RESP 15–16; TEMP 98.2; O2SAT 93–96
[~2025-01-29 14:00] MED LIST changes: -CLOP75TA34 PO; -HYDR-3972 PO; +METO-395 PO
[2025-01-29] MEDS ORDERED: NITR0.4T48 SL (14:33)
[2025-01-29] MEDS ORDERED: CARV3.122 PO (14:34)
[2025-01-29] MEDS ORDERED: OMEP40CA21 PO (14:35)
[2025-01-29] MEDS ORDERED: ROSU10TA72 PO (14:37)
[2025-01-29] MEDS ORDERED: midazolam 1 mg/ML 2ml injection ONE ×2 (15:02→16:25)
[2025-01-29] MEDS ORDERED: LIDOcaine 1% 30ml preserv. free vial ONE (15:02)
[2025-01-29] MEDS ORDERED: fentaNYL/PF 50MCG/1 ML 2ML syringe ONE (15:02)
[2025-01-29] MEDS ORDERED: heparin 1,000unit/ml 10ml vial 0 ML ONE (15:03)
--- NOTE | 2025-01-29 15:03 | ELECTROCARDIOGRAPH REPORT ---
[facility] Test Date: 2025-01-29 Test Time: 15:02:57 Pat Name: RODRIGUEZ MEDINA Department: [facility] Patient ID: [facility]-[id number] Room: Gender: M Dental Surgery Doctor: CHRISTEN : 1950 Requested By: BENITA ZEE Order Number: [id number] Reading MD: Dr. JILLIAN Arenas Measurements Intervals [place] Rate: 107 P: 49 WV: 191 QRS: 31 QRSD: 89 T: 32 QT: 343 QTc: 458 Interpretive Statements Sinus tachycardia Abnormal R-wave progression, early transition Borderline repolarization abnormality Electronically Signed On 01-29-2025 17:25:[address] JILLIAN Arenas Please click the below link to view image of tracing.
--- NOTE | 2025-01-29 17:01 | CARDIAC CATH REPORT ---
Cardiac Cath Report Providers to CC CC: VALERIE ZEE MD Procedure Comments: 1. Left Heart Catheterization 2. Selective Coronary Angiography 3. Coronary artery bypass angiography 4. Right Femoral artery access 5. Right femoral artery angiography 6. Closure of femoral artery with Perclose x 1 Brief History/Indications: 74yo man with CAD(PCI LAD, then 2vCABG 2009 SUMMERS-LAD, SVG-Dx, PCI LMCA 2021) with recurrent CP, concern for unstable angina. Techniques: After informed consent was obtained, the patient was brought to the cardiac catheterization laboratory and prepped and draped in usual sterile fashion for left heart catheterization and other procedures mentioned above. The right groin was anesthetized with 1% Lidocaine and the femoral artery accessed via the Seldinger technique after which a 6Fr sheath was placed. Through this a JL4 was used to engage the left coronary artery, a JR4 to engage the right coronary artery, coronary artery bypass grafts, left internal mammary artery, and left ventricle. At the conclusion of the case the sheath was removed and hemostasis obtained with a Perclose device. Findings Findings: CORONARY ARTERIES: Right Dominant LMCA: Patent ostial stent LAD: 100% ISR of prox LAD stent. Fills via SUMMERS-LAD and SVG-Dx Dx: Fills via SVG-Dx LCx: Luminal Irregularities OM1: Small OM2: Luminal Irregularities OM3: Luminal Irregularities RCA: 40-50% mid-RCA stenosis PDA: Luminal Irregularities PL: Luminal Irregularities GRAFTS: SUMMERS-LAD: Patent SVG-Dx: Patent Results Results: 1. 100% occluded prox LAD stent. Mod mid RCA disease (unchanged from previous) 2. Patent SUMMERS-LAD and SVG-Dx 3. RFA access, closed with Perclose RECOMMENDATIONS: 1. Recommend uptitration of other max tolerated GDMT BENITA ZEE MD Jan 29, 2025 17:01
[2025-01-29] MEDS: HYDROcodone/acetaminophen 5mg/325mg tablet PO ONE (17:52)
== END 2025-01-29 19:00 | disposition home or self-care (01) ==
LOC: SSTAY O 14:00
PROVIDERS: ATTEND Student in an Organized Health Care Education/Training Program
DX: I25.10 Atherosclerotic heart disease of native coronary artery without angina pectoris (principal); Z79.01 Long term (current) use of anticoagulants; I10 Essential (primary) hypertension; Z79.899 Other long term (current) drug therapy; Z98.890 Other specified postprocedural states
CPT/HCPCS: 36415; 80048; 80061; 83695; 84484; 85025; 85610; 85730; 93005; 93459; 99152; A6258; C1760; J1644; J2003; J2250; J3010; J7030; Q9967; Z7610; 99153